=== PATIENT | male | born 1945 | race Caucasian/White ===

== ENCOUNTER → 2020-01-22 | Outpatient (CLI) | payer MEDICARE ==
[~2020-01-22] MED LIST: ATOR-2 PO; CYAN1TAB29 INJ; LEVO25TA4 PO; OMNIPAQUE 350 MG/ML, 100ML BOTTLE ONE; PANT40TA5 PO; SERT50TA28 PO; VERA240C2 PO; VERA40TA PO
== END | disposition home or self-care (01) ==
LOC: RAD 11:06
PROVIDERS: ATTEND Family Medicine
DX: N40.0 Benign prostatic hyperplasia without lower urinary tract symptoms (principal); R42 Dizziness and giddiness; I10 Essential (primary) hypertension; D50.0 Iron deficiency anemia secondary to blood loss (chronic); E03.9 Hypothyroidism, unspecified; E55.9 Vitamin D deficiency, unspecified; E53.8 Deficiency of other specified B group vitamins; K21.9 Gastro-esophageal reflux disease without esophagitis; H91.93 Unspecified hearing loss, bilateral; H93.19 Tinnitus, unspecified ear; G47.30 Sleep apnea, unspecified; F10.10 Alcohol abuse, uncomplicated; F32.9 Major depressive disorder, single episode, unspecified
CPT/HCPCS: 74177; Q9967